=== PATIENT | male | born 1995 | race Hispanic/Latino ===

== ENCOUNTER 2021-01-07 15:00 | Outpatient (RCR) | payer BC, SELFPAY ==
--- NOTE | 2020-11-27 10:49 | HP.OTEVAL_ITS ---
Patient's Visit Information JOHN PARIKH is a 25 year old M, referred to Occupational Therapy by SONIA Balderas, with a diagnosis of Radial styloid tenosynovitis (De Quervain's). Date of Evaluation: 11/25/20 Occupational Therapist: Marlen Ying, NIKKY/Jed, CHT - Subjective This 25/M was seen for initial OT eval today for De Quervain's syndrome. He reported that he wrist began hurting around 4 months ago when he washed his hands at work. He received a thumb spica splint from the doctor (his cast) and has been wearing it AAT for about a week. He was not wearing it today because he did not have a chance to wash it after work last night. He indicated that when wearing the splint, there is little to no pain, but he is unable to do somethings at work. His ADLs and IADLs are fine, but when he rolls up his long sleeve shirts, there is pain. He often plays the card game, [employer], and his hand pain does not affect it. 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 He is R handed. - Pain L CMC and wrist 2 - ROM Forearm: R: WNL L: WNL Wrist: R: WNL L:WNL Opposition: 10 ROM Comments: Pain with making a composite fist and hyperextending L CMC jt. 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 Pt will demonstrate an increase in L lateral pinch by at least 3# and a L tip pinch strength by at least 8# to be able to perform work tasks by d/c. Goal:: pt will self-report pain no greater than a 1/10 with heavy use at work by d/c. 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 Pt would benefit from skilled OT services 1x a week for 5 weeks to decrease pain, increase strength, and make adjustments to thumb spica splint as needed. Today, therapist educated pt on safe holding/picking up techniques to decrease pain and exacerbations of injury. Pt agreed with and understood POC. Therapy session was directly supervised and doc. approved by Marlen Ying OTR/L,CHT Rehabilitation Potential: Good - Anticipated Interventions A/AAROM/PROM, Strengthening, Triggerpoint Release, Modalities, Orthoses, Joint Protection/Energy Conservation, Ergonomic Education, Home Program - Visit Plan Frequency: 1x/Week Duration: 4-6 Weeks TEXT: Thank you for the opportunity to evaluate your patient. For Medicare and Medicare HMO plans, please review the plan of care and approve it. It will need to be FAXED BACK to us at [phone] for Medicare purposes. Please let me know if there are questions or concerns regarding this plan of care. Physician Signature: _Date:
--- NOTE | 2020-12-31 15:38 | OTREVAL_ITS ---
SONIA Balderas, It has been my pleasure to treat JOHN PARIKH over the last 4 visits for Radial styloid tenosynovitis (De Quervain's). Please see the progress note below for an update on the occupational therapy plan of care! Subjective: pt last seen 12/09/20 and arrives today with orthosis on-pt states it is difficult to get to apts with his work schedule. 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 left lateral pinch 10#. left tripod pinch 8#. pt still painful with palpation of over radial styloid- pain at 1-2 with ffinklestines testing Plan Frequency: 1x/Week Visits in this POC: 2 more visits until pt returns to for possible cortisone shot. Plan: therapist rec'd pt abbi at now clinic for follow up as no sig. change and limited attendance to therapy. 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 Pt will demonstrate an increase in L lateral pinch by at least 3# and a L tip pinch strength by at least 8# to be able to perform work tasks by d/c. Goal:: pt will self-report pain no greater than a 1/10 with heavy use at work by d/c. Goal:: pt will demo understanding of work ergo to prevent stress on tendon/joints by d/c Anticipated Interventions Anticipated Interventions: A/AAROM/PROM, Strengthening, Triggerpoint Release, Modalities, Orthoses, Joint Protection/Energy Conservation, Ergonomic Education, Home Program Please do not hesitate to contact me at [phone] by phone or if you have questions or concerns regarding this new plan of care! Sincerely, Marlen Ying, OTR/L, CHT
--- NOTE | 2021-04-20 09:34 | HP.OTDCSUM ---
It has been my pleasure to treat JOHN PARIKH under orders from SONIA Balderas, for the diagnosis of Radial styloid tenosynovitis (De Quervain's) for a total of 5 visit(s). Please see the following information for a summary of their discharge status. 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 Pt will demonstrate an increase in L lateral pinch by at least 3# and a L tip pinch strength by at least 8# to be able to perform work tasks by d/c. Goal:: pt will self-report pain no greater than a 1/10 with heavy use at work by d/c. Goal:: pt will demo understanding of work ergo to prevent stress on tendon/joints by d/c Plan: cont with OT POC. notified supervising OTR of pts. difficulty getting scheduled for now clinic as recommended last session due to lack of primary MD. If there are questions or concerns regarding this patient's occupational therapy, please fell free to call me at [phone]. Thank you for the referral of this patient. Sincerely, Marlen Ying, OTR/L, CHT
== END 2021-01-07 19:00 | disposition home or self-care (01) ==
LOC: OT 15:00
PROVIDERS: Referring Provider Physician Assistant; Visit Provider Physician Assistant
DX: M65.4 Radial styloid tenosynovitis [de Quervain] (principal)
CPT/HCPCS: 97035; 97110; 97140; 97165; 97530; 97760